=== PATIENT | female | born 1990 | race Caucasian/White ===

== ENCOUNTER 2018-02-19 14:24 | Emergency (ER) | payer MEDICAID ==
[~2018-02-19] VITALS: Ht 154.9 cm; Wt 71.7 kg
[2018-02-19 14:39] VITALS: BP 100/37
--- NOTE | 2018-02-19 14:44 | NUR ---
PT AMBULATES BACK TO THE LOBBY
--- NOTE | 2018-02-19 15:11 | NUR ---
PATIENT AMBULATED TO ER BED 11
--- NOTE | 2018-02-19 15:15 | NUR ---
ASSUMED TEMPORARY CARE OF PT AT THIS TIME FOR PRIMARY RN WHO IS ON 30 MIN. BREAK. C/O BUMP ON LT INNER THIGH, DIZZY, WEAKNESS, NAUSEA X 2 DAYS. AAOX4 WITH EVEN AND STEADY GAIT; PATIENT STATES PAIN OF 0/10 AT THIS TIME; VSS; PATIENT POSITIONED FOR COMFORT; HOB ELEVATED; BEDRAILS UP X2; BED DOWN. ER MD MADE AWARE OF PT STATUS.
[2018-02-19] MEDS ORDERED: ceFAZolin 1,000 MG VIAL IM ONE (16:35)
[2018-02-19] MEDS ORDERED: WATER STERILE 10 ML MC ONE (16:44)
--- NOTE | 2018-02-19 17:40 | NUR ---
Patient discharged with v/s stable. Written and verbal after care instructions given and explained. Patient alert, oriented and verbalized understanding of instructions. Ambulatory with steady gait. All questions addressed prior to discharge. ID band removed. Patient advised to follow up with PMD. Rx of NAPROSYN/KEFLEX given. Patient educated on indication of medication including possible reaction and side effects. Opportunity to ask questions provided and answered.
== END 2018-02-19 17:30 | disposition home or self-care (01) ==
LOC: MED 14:24
DX: L03.314 Cellulitis of groin (principal)
CPT/HCPCS: 96372; 99283; J0690

== ENCOUNTER 2018-12-23 13:23 | Emergency (ER) | payer MEDICAID ==
[~2018-12-23] VITALS: Ht 154.9 cm; Wt 74.8 kg
[2018-12-23 13:31] VITALS: BP 158/86
--- NOTE | 2018-12-23 13:45 | NUR ---
PT AMB TO BED 4
--- NOTE | 2018-12-23 14:02 | NUR ---
AAO X4 28 YR OLD FEMALE WITH C/O BURNING URINARY SENSATION,LOWER ABDOMINAL PAIN RADIATING TO LOWER BACK, HEADACHE X 10 DAYS. HEMATURIA X 4 DAYS. LMP 12/10/18. MED HX: DENIES
--- NOTE | 2018-12-23 14:12 | NUR ---
Dr. Agee evaluating patient at bedside.
[2018-12-23 14:39] LABS: APPEARANCE,URINE CLEAR (CLEAR); BILIRUBIN,URINE NEGATIVE (NEGATIVE); BLOOD, URINE 2+ (NEGATIVE); COLOR,URINE YELLOW (YELLOW); LEUKOCYTE ESTERASE ,URINE TRACE (NEGATIVE); NITRITE, URINE NEGATIVE (NEGATIVE); UGLUCOSE NEGATIVE (NEGATIVE)
[2018-12-23 14:49] LABS: RBC,URINE 0-5 /HPF (0-5); WBC,URINE 0-5 /HPF (0-5)
[2018-12-23 15:30] VITALS: BP 158/86
== END 2018-12-23 15:30 | disposition home or self-care (01) ==
LOC: MED 13:23
DX: N39.0 Urinary tract infection, site not specified (principal); F17.210 Nicotine dependence, cigarettes, uncomplicated; Z90.49 Acquired absence of other specified parts of digestive tract
CPT/HCPCS: 81001; 81025; 87086; 87186; 99283

== ENCOUNTER 2019-03-19 15:30 | Emergency (ER) | payer SELFPAY ==
--- NOTE | 2019-03-19 15:33 | NUR ---
PT STS " I TOLD THEM, I DID NOT WANT TO COME HERE. I'M NOT STAYING.". PT [id number], [id number], JELLY.
--- NOTE | 2019-03-19 15:33 | NUR ---
PATIENT LEFT WITHOUT BEING SEEN BY DR. HERRERA. NO FURTHER CARE PROVIDED FOR PATIENT.
== END 2019-03-19 15:33 | disposition left against medical advice (07) ==
LOC: MED 15:30
DX: F41.9 Anxiety disorder, unspecified (principal); Z53.21 Procedure and treatment not carried out due to patient leaving prior to being seen by health care provider

== ENCOUNTER 2019-03-19 16:13 | Emergency (ER) | payer MEDICAID ==
[~2019-03-19] VITALS: Ht 157.5 cm; Wt 72.6 kg
[2019-03-19 16:29] VITALS: BP 131/85
--- NOTE | 2019-03-19 16:34 | NUR ---
PT AMBULATED TO BED 05.
--- NOTE | 2019-03-19 16:45 | NUR ---
PT C/O ANXIETY , PANIC ATTACKS X 24 HRS. PATIENT STATES PAIN OF 0/10 AT THIS TIME; VSS; PATIENT POSITIONED FOR COMFORT; HOB ELEVATED; BEDRAILS UP X1; BED DOWN. ER MD MADE AWARE OF PT STATUS.
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
[2019-03-19 18:29] LABS: APPEARANCE,URINE CLEAR (CLEAR); BILIRUBIN,URINE 2+ (NEGATIVE); BLOOD, URINE TRACE-I (NEGATIVE); COLOR,URINE YELLOW (YELLOW); LEUKOCYTE ESTERASE ,URINE TRACE (NEGATIVE); NITRITE, URINE NEGATIVE (NEGATIVE); UGLUCOSE NEGATIVE (NEGATIVE)
[2019-03-19 18:30] VITALS: BP 122/78
--- NOTE | 2019-03-19 18:30 | NUR ---
PATIENT ELOPED FROM FACILITY. DISCHARGE INSTRUCTIONS NOT GIVEN TO PATIENT. DR. HERRERA/MID LEVEL GAYLA VITALE NOTIFIED.
[2019-03-19 18:36] LABS: BARBITURATE, URINE NEG. ng/ml (NEG <=200); BENZODIAZEPINE, URINE NEG. ng/mL (NEG <=200); CANNABINOID, URINE POS. ng/mL (NEG <=50); COCAINE, URINE NEG. ng/mL (NEG <=300); OPIATE, URINE NEG. ng/mL (NEG <=2000); PHENCYCLIDINE SCREEN,URINE NEG. ng/mL (NEG <=25)
[2019-03-19 18:51] LABS: RBC,URINE 0-5 /HPF (0-5)
== END 2019-03-19 18:30 | disposition left against medical advice (07) ==
LOC: MED 16:13
DX: S40.021A Contusion of right upper arm, initial encounter (principal); S40.022A Contusion of left upper arm, initial encounter; N39.0 Urinary tract infection, site not specified; F15.90 Other stimulant use, unspecified, uncomplicated; F12.90 Cannabis use, unspecified, uncomplicated; Y04.0XXA Assault by unarmed brawl or fight, initial encounter; Y93.89 Activity, other specified; Y92.89 Other specified places as the place of occurrence of the external cause; Y99.8 Other external cause status
CPT/HCPCS: 70160; 73630; 80305; 81001; 81025; 87086; 99284

== ENCOUNTER 2020-01-03 21:55 | Emergency (ER) | payer MEDICAID ==
[~2020-01-03] VITALS: Ht 157.5 cm; Wt 54.4 kg
--- NOTE | 2020-01-03 22:08 | NUR ---
PT TAKEN TO BED 6
[2020-01-03 22:20] VITALS: BP 135/75
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
--- NOTE | 2020-01-03 22:32 | NUR ---
Dr. Greene examining patient.
[2020-01-03] MEDS: IBUPROFEN 600 MG TAB PO ONE (22:44)
[2020-01-03] MEDS: KETOROLAC 30 MG/ML VIAL IM ONE (22:45)
[2020-01-03 23:15] LABS: BARBITURATE, URINE NEGATIVE ng/ml (NEG <=200); BENZODIAZEPINE, URINE NEGATIVE ng/mL (NEG <=200); CANNABINOID, URINE NEGATIVE ng/mL (NEG <=50); COCAINE, URINE NEGATIVE ng/mL (NEG <=300); OPIATE, URINE NEGATIVE ng/mL (NEG <=2000); PHENCYCLIDINE SCREEN,URINE NEGATIVE ng/mL (NEG <=25)
--- NOTE | 2020-01-04 00:50 | NUR ---
VAGINAL EXAM PERFORMED. WET MOUNT PERFORMED AND SENT TO LAB. DEANNA VALADEZ AT BEDSIDE WITH DR GILES DURING EXAM. PT TOLERATED WELL
--- NOTE | 2020-01-04 01:06 | NUR ---
PT ASKED TO SPEAK TO SOMEONE "HIGHER THEN THE DOCTOR." VADIM CHARGE NURSE MADE AWARE. PT UPSET ABOUT HAVING TO WAIT FOR ABX AND TEST RESULTS.
[2020-01-04] MEDS ORDERED: cefTRIAXone 250 MG VIAL ONE (01:14)
[2020-01-04] MEDS ORDERED: LIDOCAINE MPF 1% 5 ML ONE (01:14)
[2020-01-04 01:19] LABS: APPEARANCE,URINE SL CLOUDY (CLEAR); BILIRUBIN,URINE NEGATIVE (NEGATIVE); BLOOD, URINE NEGATIVE (NEGATIVE); COLOR,URINE YELLOW (YELLOW); LEUKOCYTE ESTERASE ,URINE NEGATIVE (NEGATIVE); NITRITE, URINE NEGATIVE (NEGATIVE); UGLUCOSE NEGATIVE (NEGATIVE)
--- NOTE | 2020-01-04 01:30 | NUR ---
SPOKE WITH PATIENT ABOUT PLAN OF CARE. PT REQUESTING INFORMATION REGARDING MEDICATIONS GIVEN IN ED. PT PROVIDED WITH WRITTEN AND VERBAL MATERIALS REGARDING ROCEPHIN AND AZITHROMYCIN.
--- NOTE | 2020-01-04 01:40 | NUR ---
PT REFUSING TO LEAVE FACILITY, STATING THAT SHE WAS NEVER GIVEN DISCHARGE INSTRUCTIONS. EXPLAINED TO PATIENT THAT SHE REFUSED TO SIGN FOR DISCHARGE PAPERWORK. RE-EXPLAINED TO PATIENT DISCHARGE PAPERWORK.
[2020-01-04] MEDS: cefTRIAXone 250 MG in LIDOCAINE MPF 1% 0.9 ML IM ONE (01:45)
[2020-01-04] MEDS: AZITHROMYCIN 250 MG TAB PO ONE (01:45)
[2020-01-04 02:02] VITALS: BP 116/70
--- NOTE | 2020-01-04 02:02 | NUR ---
PT LEFT FACILITY AT THIS TIME. REFUSED TO SIGN FOR PAPERWORK.
[2020-01-06 09:13] LABS: CHLAMYDIA TRACHOMATIS AMP DNA Negative (Negative)
== END 2020-01-04 02:02 | disposition home or self-care (01) ==
LOC: MED 21:55
DX: N76.0 Acute vaginitis (principal); B96.89 Other specified bacterial agents as the cause of diseases classified elsewhere; F15.90 Other stimulant use, unspecified, uncomplicated; Z90.49 Acquired absence of other specified parts of digestive tract
CPT/HCPCS: 36415; 80305; 81003; 81025; 87210; 96372; 99283; J0696; J2001; 87491; J1885

== ENCOUNTER 2020-08-05 21:14 | Emergency (ER) | payer MEDICAID ==
[~2020-08-05] VITALS: Ht 157.5 cm; Wt 56.7 kg
[2020-08-05 21:20] VITALS: BP 100/67
--- NOTE | 2020-08-05 21:23 | NUR ---
TO LOBBY A/W BED VIA W/C
--- NOTE | 2020-08-05 21:48 | NUR ---
James burden in [facility] - 08/05/20 at 2319 by MEDGJ SONAL EVALUATING PT.
--- NOTE | 2020-08-05 21:48 | NUR ---
SEEN AND EXAMINED BY SONAL WITH ORDERS AND CARRIED OUT.
[2020-08-05] MEDS ORDERED: KETOROLAC 60 MG/2 ML VIAL IM ONE (21:55)
--- NOTE | 2020-08-05 22:20 | NUR ---
PT TAKEN TO RAD VIA W/C
[2020-08-05] MEDS ORDERED: ACETAMINOPHEN EXTRA STRENGTH 500 MG TAB ONE (22:25)
--- NOTE | 2020-08-05 22:25 | NUR ---
PT REPORTS BEGN 2 MONTHS , ERMD NOTIFIED. RECEIVED ORDER FOR TYLENOL 1000MG PO. ORDER CARRIED OUT.
--- NOTE | 2020-08-05 22:30 | NUR ---
PT TOOK MEDICATION AND THEN SPIT IT OUT STATING "I DONT WANT IT. JUST TAKE THE XRAY." ERMD NOTIFIED.
[2020-08-05] MEDS: ACETAMINOPHEN EXTRA STRENGTH 500 MG TAB PO ONE (22:31)
--- NOTE | 2020-08-05 23:18 | NUR ---
PT STABLE FOR DISCHARGE BUT REFUSING TO SIGN DISCHARGE INSTRUCTIONS.
== END 2020-08-05 23:18 | disposition home or self-care (01) ==
LOC: MED 21:14
DX: M25.562 Pain in left knee (principal); M25.512 Pain in left shoulder
CPT/HCPCS: 73030; 73562; 99284; J1885